=== PATIENT | male | born 2000 | race Caucasian/White ===

== ENCOUNTER 2020-06-24 13:47 | Outpatient (REF) | payer MEDICAID, SELFPAY ==
[2020-06-24 19:55] LABS: ALT 109 U/L (16-63); AST 57 U/L (15-37); Albumin 4.2 g/dL (3.4-5.0); Alkaline Phosphatase 65 U/L (46-116); BUN 8 mg/dL (7-18); Bilirubin, Total 0.6 mg/dL (0.2-1.0); CREATININE 0.94 mg/dL (0.70-1.30); Calcium 9.2 mg/dL (8.5-10.1); Calculated LDL 78 mg/dL (<100); Chloride 103 mmol/L (98-107); Cholesterol 149 mg/dL (<200); Glucose 90 mg/dL (74-106); HDL Cholesterol 27 mg/dL (40-60); Potassium 3.8 mmol/L (3.5-5.1); Sodium 139 mmol/L (136-145); Total Protein 7.7 g/dL (6.4-8.2); Triglyceride 220 mg/dL (<150)
== END 2020-06-24 14:07 ==
LOC: NCHCN 13:47
PROVIDERS: PCP Physician Assistant; Visit Provider Physician Assistant
DX: E78.1 Pure hyperglyceridemia (principal); E66.9 Obesity, unspecified; Z13.1 Encounter for screening for diabetes mellitus
CPT/HCPCS: 80053; 80061; 84443

== ENCOUNTER 2020-07-06 19:47 | Outpatient (REF) | payer MEDICAID, SELFPAY ==
[2020-07-06 20:02] LABS: Ferritin 75 ng/mL (26-388)
[2020-07-06 22:38] LABS: Iron 56 ug/dL (65-175); Total Iron Binding Capacity 410 ug/dL (250-450); Transferrin Sat 14 % (20-55)
[2020-07-08 10:34] LABS: Hepatitis A Antibody IgM Negative (Negative); Hepatitis B Core Antibody Negative (Negative); Hepatitis B surface Ag Negative (Negative); Hepatitis C Ab w Rflx HCV PCR Negative (Negative)
== END 2020-07-06 20:07 ==
LOC: NCHCN 19:47
PROVIDERS: PCP Physician Assistant; Visit Provider Physician Assistant
DX: R74.8 Abnormal levels of other serum enzymes (principal); K76.0 Fatty (change of) liver, not elsewhere classified; E66.9 Obesity, unspecified; E78.1 Pure hyperglyceridemia
CPT/HCPCS: 86704; 86709; 86803; 87340; 82728; 83540; 83550

== ENCOUNTER 2025-04-28 15:38 | Outpatient (REF) | payer OTHER, SELFPAY ==
[2025-04-28 19:30] LABS: Abs Immature Grans 0.14 10^3/uL (0.0-0.06); HCT 50.9 % (40.0-50.0); HGB 17.2 g/dL (13.5-17.5); Immature Grans % 1.6 %; MCH 28.5 pg (27.0-33.0); MCHC 33.8 % (32.0-36.0); MCV 84 fL (80-95); MPV 10.8 fL (8.0-11.0); Platelet Count 258 10^3/uL (130-400); RBC 6.03 10^6/uL (4.36-5.78); RDW 13.9 % (11.8-14.1); RDW-SD 42.3 fL; WBC 8.90 10^3/uL (4.4-10.8)
[2025-04-28 19:47] LABS: ALT 137 U/L (16-63); AST 100 U/L (15-37); Albumin 3.8 g/dL (3.4-5.0); Alkaline Phosphatase 76 U/L (46-116); Anion Gap 11.0 mmol/L (3-11); BUN 10 mg/dL (7-18); Bilirubin, Total 0.6 mg/dL (0.2-1.0); CO2 26.0 mmol/L (21.0-32.0); Calcium 8.8 mg/dL (8.5-10.1); Chloride 105 mmol/L (98-107); Cholesterol 180 mg/dL (<200); Estimated GFR 122.31 (mL/min/1.73m2); Glucose 119 mg/dL (74-106); HDL Cholesterol 23 mg/dL (>or=40); Potassium 3.8 mmol/L (3.5-5.1); Sodium 142 mmol/L (136-145); TSH (W/Ref FT4) 3.02 uIU/mL (0.36-3.74); Total Protein 7.7 g/dL (6.4-8.2); Triglyceride 630 mg/dL (<150)
[2025-04-28 19:51] LABS: RBC Morphology Normal
[2025-04-28 19:58] LABS: Hemoglobin A1C 6.0 % (<5.7); LDL CHOLESTEROL 79 mg/dL (<100)
== END 2025-04-28 15:39 | disposition home or self-care (01) ==
LOC: NCHCN 15:38
PROVIDERS: PCP Physician Assistant; Visit Provider Physician Assistant
DX: R00.0 Tachycardia, unspecified (principal); E66.9 Obesity, unspecified
CPT/HCPCS: 80053; 80061; 83721; 83036; 84443; 85025